=== PATIENT | male | born 2000 | race Caucasian/White ===

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

== ENCOUNTER → 2020-02-05 | Outpatient (CLI) | payer OTHER ==
[~2020-02-05] MED LIST: MINO100C63 PO; PRED20TA PO
--- NOTE | 2020-02-05 08:42 | PFTRPT ---
Height: 74.00 Inches Weight: 165.00 Lbs BSA: 2.00 Diagnosis: Pectus Excavatum DATE: 02/05/2020 ORDERING PHYSICIAN: Phyllis Webster Study is of excellent technical quality. Some difficulty with effort is identified. Forced vital capacity is normal. FEV1 is in proportion. Obstructive index is therefore normal. Expiratory limit of the flow-volume loop is normal. There is flattening of the inspiratory limb of the loop, raises a question of effort versus vocal cord dysfunction. Total lung capacity is normal. Residual volume is generally in proportion. Diffusing capacity is normal. No hemoglobin available for correction. Airway resistance and conductance are normal. IMPRESSION: Essentially normal study except for the flattening of the inspiratory limb which will need further clinical correlation. MTDD
== END ==
LOC: M CARPUL 07:50
PROVIDERS: ATTEND Physician Assistant
DX: R06.02 Shortness of breath (principal)